=== PATIENT | female | born 1990 | race Hispanic/Latino ===

== ENCOUNTER 2017-08-10 04:01 | Emergency (ER) | payer SELFPAY | END 2017-08-10 06:18 | disposition left against medical advice (07) | LOC: EDH 04:01 | DX: Z53.21 Procedure and treatment not carried out due to patient leaving prior to being seen by health care provider (principal); Z72.0 Tobacco use ==

== ENCOUNTER 2018-12-01 18:35 | Emergency (ER) | payer MEDICAID ==
[2018-12-01 19:18] LABS: APPEARANCE,URINE Cloudy (CLEAR); BILIRUBIN,URINE Negative (NEGATIVE); COLOR,URINE Dark Yellow (YELLOW); GLUCOSE, URINE (UA) Negative (NEGATIVE); HCG,QUAL RESULT POSITIVE (NEGATIVE); KETONES,URINE Trace mg/dL (NEGATIVE); LEUKOCYTE ESTERASE ,URINE Negative (NEGATIVE); NITRATE,URINE Negative (NEGATIVE); OCCULT BLOOD,URINE Negative (NEGATIVE); PROTEIN,URINE Negative (NEGATIVE)
[2018-12-01 19:31] LABS: BACTERIA,URINE Few /HPF (None Seen); RBC,URINE 0-1 /HPF (0-1); WBC,URINE 0-1 /HPF (0-1)
[2018-12-01 19:34] LABS: MUCUS,URINE Moderate LPF (None Seen)
== END 2018-12-01 20:14 | disposition home or self-care (01) ==
LOC: EDH 18:35
DX: O26.891 Other specified pregnancy related conditions, first trimester (principal); R10.2 Pelvic and perineal pain; Z90.49 Acquired absence of other specified parts of digestive tract; Z3A.10 10 weeks gestation of pregnancy
CPT/HCPCS: 81001; 81025

== ENCOUNTER 2019-06-19 00:47 | Observation (INO) | payer MEDICAID ==
[~2019-06-19] VITALS: Ht 165.1 cm; Wt 86.2 kg
[2019-06-19] MEDS ORDERED: LACTATED RINGERS 1000ML 1,000 ML IV PRN (00:55)
[2019-06-19 01:14] LABS: APPEARANCE,URINE Cloudy (CLEAR); BILIRUBIN,URINE Negative (NEGATIVE); COLOR,URINE Yellow (YELLOW); GLUCOSE, URINE (UA) Negative (NEGATIVE); KETONES,URINE Negative (NEGATIVE); LEUKOCYTE ESTERASE ,URINE Small (NEGATIVE); NITRATE,URINE Negative (NEGATIVE); OCCULT BLOOD,URINE Negative (NEGATIVE); PH,URINE 6.5 (5.0-8.0); PROTEIN,URINE Negative (NEGATIVE); UROBILINOGEN,URINE 0.2 mg/dL (0.2-1.0)
[2019-06-19 01:30] LABS: BACTERIA,URINE Few /HPF (None Seen); RBC,URINE None Seen /HPF (0-1); SQUAMOUS EPITHELIAL CELL,UR Moderate /HPF (0-2)
[2019-06-28] MEDS ORDERED: PREN-196 PO (19:36)
== END 2019-06-19 03:43 | disposition home or self-care (01) ==
LOC: EDH 00:47 → LDH 00:48
PROVIDERS: ADMIT Obstetrics & Gynecology; ATTEND Obstetrics & Gynecology
DX: O26.893 Other specified pregnancy related conditions, third trimester (principal); O62.9 Abnormality of forces of labor, unspecified; Z3A.37 37 weeks gestation of pregnancy
CPT/HCPCS: 81001; 99284; G0378 ×3; 96360; 96361

== ENCOUNTER 2019-06-24 13:39 | Observation (INO) | payer MEDICAID ==
[2019-06-28] MEDS ORDERED: PREN-196 PO (19:36)
== END 2019-06-24 15:45 | disposition home or self-care (01) ==
LOC: LDH 13:39
PROVIDERS: ADMIT Obstetrics & Gynecology; ATTEND Obstetrics & Gynecology
DX: O36.8130 Decreased fetal movements, third trimester, not applicable or unspecified (principal); O42.92 Full-term premature rupture of membranes, unspecified as to length of time between rupture and onset of labor; Z3A.38 38 weeks gestation of pregnancy
CPT/HCPCS: 59025; 76815; G0378 ×2

== ENCOUNTER 2023-10-05 22:43 | Emergency (ER) | payer MEDICAID, OTHER ==
[~2023-10-05] VITALS: Ht 165.1 cm; Wt 63.5 kg
[~2023-10-05 22:43] MED LIST: PREN-196 PO
[2023-10-05] MEDS: ONDANSETRON ODT 4MG TAB SL ONE (23:49)
[2023-10-05] MEDS: ACETAMINOPHEN 500 MG TABLET PO ONE (23:58)
[2023-10-06] MEDS: KETOROLAC 30MG VIAL (30MG/ML) IVP ONE (00:57)
[2023-10-06] MEDS: DiphenhydrAMINE HCL 50 MG/ML VIAL IV ONE (00:57)
[2023-10-06] MEDS: PROCHLORPERAZINE 10MG/2ML INJ IV ONE (00:57)
[2023-10-06] MEDS ORDERED: ONDA4TAB10 PO (02:06)
[2023-10-06 02:17] VITALS: BP 124/74; PULSE 68; RESP 17; O2SAT 99
== END 2023-10-06 02:22 | disposition home or self-care (01) ==
LOC: EDH 22:43
DX: R51.9 Headache, unspecified (principal)
CPT/HCPCS: 99284; 84703; 36415; 96374; 96375; J1200; J0780; J1885

== ENCOUNTER 2023-10-08 17:59 | Emergency (ER) | payer OTHER ==
[~2023-10-08] VITALS: Ht 165.1 cm; Wt 66.2 kg
[~2023-10-08 17:59] MED LIST changes: +ONDA4TAB10 PO
[2023-10-08 19:59] VITALS: BP 120/78; PULSE 70; RESP 18
== END 2023-10-08 20:35 | disposition left against medical advice (07) ==
LOC: EDH 17:59 → EEVIPCON 17:59 → EDH 20:35
DX: R51.9 Headache, unspecified (principal); Z53.21 Procedure and treatment not carried out due to patient leaving prior to being seen by health care provider
CPT/HCPCS: 99281

== ENCOUNTER 2024-08-04 10:46 | Emergency (ER) | payer SELFPAY ==
[~2024-08-04] VITALS: Ht 165.1 cm; Wt 62.1 kg
[~2024-08-04 10:46] MED LIST changes: +ONDA-243 PO; -ONDA4TAB10 PO
--- NOTE | 2024-08-04 10:57 | ERN ---
ED Note History of Present Illness Stated Complaint: ABDOMINAL PAIN Chief Complaint: Abdominal Pain Time Seen by MD: 10:50 Time Seen by Midlevel: 10:56 Dictation: 34-year-old female with no past medical history coming in complaining of right upper quadrant pain radiating to the mid back that started this morning. Patient states last night she had some " birria" tacos and the pain started earlier this morning. Denies any nausea or vomiting or diarrhea. LMP 07/12/2024 Allergies: Coded Allergies: No Known Allergies (Unverified Allergy, Unknown, 12/01/18) Home Meds Active Scripts Ondansetron (Ondansetron Odt) 4 Mg Tab.rapdis, 4 MG PO Q6HPRN PRN for nausea for 3 Days, #12 TAB 0 Refills Prov:DEBBIE HILTON NP 08/04/24 Ondansetron (Ondansetron Odt) 4 Mg Tab.rapdis, 4 MG PO TID PRN for NAUSEA, #15 TAB 0 Refills Prov:CARLOS BENTON MD 10/06/23 Reported Medications Vit No.124/Iron/FA ( Vitamin Tablet) 1 Each Tablet, 1 EACH PO DAILYDINNER, TAB 06/28/19 Past Medical History Past Medical History: No Pertinent History Surgical History: Appendectomy History: Not Applicable LMP: Jul 14, 2024 Review of System Dictation Constitutional: Negative for fever,chills, and weight loss Eyes: Negative for injury, pain,redness, and discharge ENT: Negative for injury,pain or swelling Cardiovascular: Negative for chest pain, palpitations, and edema Respiratory: Negative for shortness of breath, cough, and wheezing, Abdomen/GI: Complaining of right upper quadrant pain, nausea, vomiting, diarrhea, and constipation Back: Negative for injury and pain : Negative for injury, bleeding and discharge MS/Extremity: Negative for injury and deformity Skin: Negative for rash, and discoloration Neuro: Negative for headache, weakness, numbness, tingling, and seizure Psych: Negative for suicide ideation, homicidal ideation, and hallucinations Review of Systems: was completed Initial Vital Sign VS Vital Signs Date Time Temp Pulse Resp B/P (MAP) Pulse Ox O2 Delivery O2 Flow Rate FiO2 08/04/24 10:48 97.0 81 20 115/61 98 0 08/04/24 12:33 Room Air* 21 Physical Exam Dictation General: awake, alert, NAD Head/Face: Normocephalic, atraumatic Eyes: PERRL, EOMI, vision at baseline ENT: oral cavity clear, TMs clear, no signs of infection Neck: Trachea midline, supple, no nuchal rigidity Cardiovascular: RRR, normal S1/S2, No MRGs, no JVD Respiratory: CTAB, no respiratory distress, No rales or wheezes Abdomen: Soft, tenderness to the right upper quadrant pain, non-distended, normal bowel sounds, no guarding or rebound. Skin: Warm, dry, normal turgor, no rash MS/Extremity: Pulses equal, no cyanosis, neurovascular intact, FROM Neuro: COAx4, GCS 15, strength 5/5, CN 2-12 intact, normal cerebellar exam, normal gait, Psych: Normal behavior, mood, and affect normal Results (Laboratory/Radiology) Laboratory/Radiology Labs Reviewed?: Yes Ultrasound Comment: [address] [address] IMAGING REPORT Signed PATIENT: POORNIMA RASMUSSEN MR#: [id number] : 1990 SEX: F AGE: 34 LOCATION: [facility] ORDER [id number] STATUS: [facility] ER REPORT#: [id number] SERVICE 1053 REASON: RUQ pain ORDERING PHYSICIAN: DEBBIE HILTON NP PROCEDURE: ABDRUQLTD - US ABDOMINAL RUQ\\LTD US ABDOMINAL RUQ\\E\\LTD HISTORY: Abdominal pain COMPARISON: None TECHNIQUE: Right upper quadrant abdominal ultrasound study was performed. FINDINGS: Liver measures 15 cm. Gallbladder is distended. The visualized portion of the pancreas is within normal limits. Liver is echogenic consistent with liver parenchymal disease. No gallstone is seen. Common duct measures 3 mm. No evidence of gallbladder wall thickening is seen. Right kidney measures 10 x 3.8 x 5.2 cm. No hydronephrosis is seen of the right kidney. IMPRESSION: 1. No gallstones or ductal dilatation is seen. 2. No hydronephrosis is seen. DICTATED BY: NAEL EAST MD DATE: 08/04/24 1132 ELECTRONICALLY SIGNED BY: NAEL EAST MD DATE: 08/04/24 1136 ED Course ED Course Medical Decision Making MDM MDM: 34-year-old female with no past medical history coming in complaining of right upper quadrant pain radiating to the mid back that started this morning. Patient states last night she had some " birria" tacos and the pain started earlier this morning. Denies any nausea or vomiting or diarrhea. LMP 07/12/2024.CBC shows no leukocytosis, no anemia, no thrombocytopenia. Chemistry unremarkable, no transaminitis, low patient was normal. Patient is not . Ultrasound shows no cholelithiasis. Discussed findings with the patient. Educated patient more than likely her pain is due to either GERD or gastritis. Educated to stop eating spicy or greasy foods until her symptoms improve. Educated to follow up with her PCP in 1-2 days and to return to the ER if symptoms worsen. Patient verbalized understanding, answered all questions. Differential diagnosis: GERD, gastritis, cholelithiasis, cholecystitis Rationale: Tests considered and ordered secondary to shared decision making include: Previous outside records reviewed: Old ER visits. Risk of complication and/or morbidity or mortality of patient management: None Medications-Per medication reconciliation Need for hospitalization: Patient does not meet criteria for hospitalization. Need for emergency major/minor surgery: No There are no social concerns with this patient. Prescription drug management Prescriptions will include symptomatic care Patient's prior external medical records from other ER visits were reviewed by me as indicated. Prior testing and results from previous visits were reviewed. Prior tests were taken into account with medical decision making and resource utilization, independent historian/historians were used to obtain complete medical history. I independently interpreted the test that were performed, results were reviewed by me and considered findings on radiology if ordered. Medical management and examination interpretation discussions were had by me with other qualified healthcare professionals as indicated for the patient's care. DX & DISP Disposition: Discharge Departure Impression: Primary Impression: Gastritis Additional Impression: RUQ pain Condition: Stable Scripts Ondansetron (Ondansetron Odt) 4 Mg Tab.rapdis 4 MG PO Q6HPRN PRN for nausea for 3 Days, #12 TAB 0 Refills Prov: DEBBIE HILTON [employer] 08/04/24 Additional Instructions: Stop eating spicy or greasy foods. Take the antiemetic as tolerated. Increase diet as tolerated. Follow up with your PCP in 1-2 days. Return to the emergency room as needed. Referrals: SELF,REFERRAL (PCP) Time of Disposition: 12:12 I have reviewed the case, and I agree with, Diagnosis and Plan I performed a substantive portion of the visit. I have reviewed and personally made and approve the management plan that is documented in the notes by myself with KELSY/resident. I acknowledged full responsibility for the patient's management plan. DEBBIE HILTON NP Aug 04, 2024 10:57 SHAY SAENZ DO Aug 11, 2024 01:15
[2024-08-04] MEDS: ondanSETRON 4MG INJ IVP STA (11:09)
[2024-08-04] MEDS: morPHINE 2 MG SYG IVP STA (11:09)
[2024-08-04 11:17] LABS: BASOPHILS # (AUTO) 0.06 K/uL (0.00-0.20); BASOPHILS % (AUTO) 0.8 % (0.0-5.0); EOSINOPHILS # (AUTO) 0.13 K/uL (0.00-0.70); EOSINOPHILS % (AUTO) 1.8 % (0.0-8.0); HEMATOCRIT 43.1 % (36-48); IMMATURE GRANULOCYTE ABSOLUTE 0.02 K/uL (0-1); LYMPHOCYTES # (AUTO) 2.4 K/uL (1.0-4.8); LYMPHOCYTES % (AUTO) 33.7 % (21.0-51.0); MEAN CORPUSCULAR HEMOGLOBIN 30.8 pg (27.0-33.0); MEAN CORPUSCULAR HGB CONC 33.4 g/dL (32.0-36.0); MEAN CORPUSCULAR VOLUME 92.1 fL (79-99); MONOCYTES # (AUTO) 0.6 K/uL (0.1-1.0); MONOCYTES % (AUTO) 8.1 % (3.0-13.0); NEUTROPHILS # (AUTO) 3.9 K/uL (1.8-7.7); NEUTROPHILS % (AUTO) 55.3 % (40.0-77.0); PLATELET COUNT (AUTO) 248 K/uL (130-400); RED BLOOD CELL COUNT(AUTO) 4.68 MIL/uL (4.00-5.50); RED CELL DISTRIBUTION WIDTH 13.8 % (11.0-15.5); WHITE BLOOD COUNT (AUTO) 7.1 K/uL (4.8-10.8)
--- NOTE | 2024-08-04 11:35 | HMCIMG ---
US ABDOMINAL RUQ\E\LTD HISTORY: Abdominal pain COMPARISON: None TECHNIQUE: Right upper quadrant abdominal ultrasound study was performed. FINDINGS: Liver measures 15 cm. Gallbladder is distended. The visualized portion of the pancreas is within normal limits. Liver is echogenic consistent with liver parenchymal disease. No gallstone is seen. Common duct measures 3 mm. No evidence of gallbladder wall thickening is seen. Right kidney measures 10 x 3.8 x 5.2 cm. No hydronephrosis is seen of the right kidney. IMPRESSION: 1. No gallstones or ductal dilatation is seen. 2. No hydronephrosis is seen.
[2024-08-04 11:55] LABS: ALBUMIN 4.2 g/dL (3.5-5.0); BILIRUBIN,DIRECT 0.1 mg/dL (0.0-0.3); BILIRUBIN,TOTAL 0.4 mg/dL (0.2-1.0); CREATININE 0.7 mg/dL (0.5-1.0); TOTAL PROTEIN, SERUM 7.9 g/dL (6.0-8.3)
[2024-08-04] MEDS: FAMOTIDINE 20MG VIAL IV STA (12:12)
[2024-08-04] MEDS ORDERED: ONDA-243 PO (12:12)
[2024-08-04] MEDS: MAG/ALUM/SIMETH 30 ML UDCUP PO ONE (12:12)
[2024-08-04] MEDS: DICYCLOMINE HCL 10 MG/5 ML ML PO ONE (12:12)
[2024-08-04] MEDS: LIDOCAINE HCL 2% VISCOUS 15 ML UDCUP PO ONE (12:12)
[2024-08-04 12:33] VITALS: BP 110/65; PULSE 80; RESP 20; TEMP 97.9; O2SAT 98
== END 2024-08-04 12:38 | disposition home or self-care (01) ==
LOC: EDH 10:46
DX: K29.70 Gastritis, unspecified, without bleeding (principal); R10.11 Right upper quadrant pain; R10.2 Pelvic and perineal pain; Z90.49 Acquired absence of other specified parts of digestive tract; Z79.899 Other long term (current) drug therapy
CPT/HCPCS: 99285; 96374; 76705; 96375; 80076; 80048; 84702; 83690; 85025; 36415; J3490; J2270; J2405; 99284